=== PATIENT | male | born 1945 | race Caucasian/White ===

== ENCOUNTER 2023-02-13 14:11 | Emergency (ER) | payer OTHER ==
[2023-02-13 14:18] VITALS: RESP 18; BMI 25.1
[2023-02-13] MEDS ORDERED: PIPERACILLIN/TAZOB 4.5 GM 3.375 GM in DEXTROSE 5%-WATER 100 ML IVPB ONE (14:35)
[2023-02-13] MEDS ORDERED: LACTATED RINGERS SOLUTION 1000 ML INFUS.BAG IV ONE (14:35)
[2023-02-13 15:40] LABS: BASO % 0.6 % (0-2.0); EOS % 2.6 % (0-4.5); HEMATOCRIT 35.7 % (35.4-49); HEMOGLOBIN 11.9 GM/dL (11.7-16.9); LYMPH % 25.2 % (8-40); MCH 27.7 pg (25.7-33.7); MCHC 33.2 g/dl (32.0-35.9); MEAN CELL VOLUME 83.5 fl (80-96); MEAN PLT VOLUME 6.9 fl (7.5-11.1); NEUT % 55.6 % (42.8-82.8); PLATELET COUNT 241 10^3/uL (134-434); RBC 4.28 M/mm3 (4.00-5.60); WHITE BLOOD COUNT 8.6 K/mm3 (4.0-10.0)
[2023-02-13] MEDS ORDERED: PIPERACILLIN/TAZOB 3.375 GM 3.375 GM/50 ML BAG IVPB ONE (15:44)
[2023-02-13 15:51] LABS: INR 1.02 (0.83-1.09); PROTHROMBIN TIME (PATIENT) 11.8 SEC (9.7-13.0)
[2023-02-13 15:59] LABS: POTASSIUM 4.7 mmol/L (3.5-5.1)
[2023-02-13 16:01] LABS: ALBUMIN 3.2 g/dl (3.4-5.0); BLOOD UREA NITROGEN 24.1 mg/dL (7-18); CALCIUM 8.3 mg/dL (8.5-10.1)
[2023-02-13 16:05] LABS: BILIRUBIN,TOTAL 0.5 mg/dL (0.2-1); CREATININE 0.9 mg/dL (0.55-1.3); TOT PROT 6.6 g/dl (6.4-8.2)
[2023-02-13] MEDS ORDERED: CARBIDOPA/LEVODOPA 25/100 TABLET (FP) PO ONE (16:05)
[2023-02-13 16:07] LABS: ACTIVATED PTT 29.3 SECONDS (25.2-36.5)
[2023-02-13] MEDS ORDERED: CARBIDOPA/LEVODOPA 25/100 TABLET (FP) ONE (16:17)
[2023-02-13 17:48] VITALS: BP 116/91; PULSE 70; TEMP 98.6
== END 2023-02-13 19:07 | disposition home or self-care (01) ==
LOC: JER 14:11
DX: L02.216 Cutaneous abscess of umbilicus (principal); Z20.822 Contact with and (suspected) exposure to COVID-19
CPT/HCPCS: 0241U-QW; 36415; 74177-TC; 80053; 83605; 85025; 85610; 85730; 86850; 86900; 86901; 87040; 87070; 87205; 93005; 93010; 99285-25; Q9967